=== PATIENT | male | born 1950 | race Caucasian/White ===

== ENCOUNTER 2019-03-05 07:35 | Day surgery (SDC) | payer OTHER ==
[~2019-03-05] VITALS: Ht 182.9 cm; Wt 108.1 kg
[2019-03-05] MEDS ORDERED: WARF4 (08:27)
[2019-03-05] MEDS ORDERED: TAMS.4ER (08:28)
[2019-03-05] MEDS ORDERED: METO25ER (08:28)
[2019-03-05] MEDS ORDERED: Norco 10-325 T1 EACH (08:29)
[2019-03-05] MEDS ORDERED: ENOX80I (08:30)
--- NOTE | 2019-03-05 09:57 | NUR ---
03/05/19 0957 Marj Fortune (Nohemy ARGON UTILIZED AND SET AT 25 GUO.
== END 2019-03-05 10:34 | disposition home or self-care (01) ==
LOC: ORSCSDS 07:35
PROVIDERS: Internal Medicine Gastroenterology
PROC: 0DB68ZX Excision of Stomach, Via Natural or Artificial Opening Endoscopic, Diagnostic (ICD-10-PCS; principal; 2019-03-05 09:15)
PROC: 0D5N8ZZ Destruction of Sigmoid Colon, Via Natural or Artificial Opening Endoscopic (ICD-10-PCS; principal; 2019-03-05 09:15)
PROC: 0DBN8ZX Excision of Sigmoid Colon, Via Natural or Artificial Opening Endoscopic, Diagnostic (ICD-10-PCS; principal; 2019-03-05 09:15)
PROC: 0DB98ZX Excision of Duodenum, Via Natural or Artificial Opening Endoscopic, Diagnostic (ICD-10-PCS; principal; 2019-03-05 09:15)
DX: D50.9 Iron deficiency anemia, unspecified (principal); Z86.010 Personal history of colon polyps; D12.5 Benign neoplasm of sigmoid colon; K31.7 Polyp of stomach and duodenum; K29.70 Gastritis, unspecified, without bleeding; Q27.33 Arteriovenous malformation of digestive system vessel; K64.1 Second degree hemorrhoids; I10 Essential (primary) hypertension; G47.33 Obstructive sleep apnea (adult) (pediatric); J45.909 Unspecified asthma, uncomplicated; Z79.01 Long term (current) use of anticoagulants; Z79.899 Other long term (current) drug therapy
CPT/HCPCS: 88305; 88342; 93005; 93010; J2704; J7120